=== PATIENT | female | born 1980 | race Caucasian/White ===

== ENCOUNTER → 2020-04-17 | Outpatient (CLI) | payer BC ==
--- NOTE | 2020-04-17 14:27 | Diagnostic Imaging Report ---
Examination: MRI BRAIN WO CONTRAST History: ^FAMILY HX OF STROKE Comparison studies: None Technique: Sagittal T2; axial DWI, FLAIR, GRE or SWI, T1, Coronal FLAIR. Intravenous contrast: None Findings: Scalp: No abnormal signal. No masses. Bone marrow: Normal in signal intensity. Brain volume: Adequate for age. No volume loss. Ventricles: Normal in size and configuration. No hydrocephalus. Extra-axial spaces: No abnormalities. Parenchyma: No masses, hemorrhage, or acute or chronic vascular insults. Suprasellar and sellar region: No abnormalities. Craniocervical junction: No abnormalities. The foramen magnum is patent. No Chiari malformations. Vessels: Normal flow-voids in the arteries and sinuses. Additional findings:None. IMPRESSION: No intracranial abnormalities. Signed by: Dr. Jessica Orantes M.D. on 04/17/2020 2:24 PM
--- NOTE | 2020-04-17 14:36 | Diagnostic Imaging Report ---
Examination: MRA HEAD WO CONTRAST History: ^FAMILY HX OF STROKE Comparison studies: None Technique: 3-D [id number] MR angiogram of the intracranial circulation was obtained. MIP images of the arteries were isolated into anterior and posterior intracranial circulations, 180 degree projections. Sagittal and coronal MPR images, and axial source images are available for evaluation. Findings: Internal carotid arteries: Patent. Anterior cerebral arteries: Patent A1 and A2. Middle cerebral arteries: Patent M1 and M2. Vertebrobasilar circulation: Patent. Posterior cerebral arteries: Patent P1 and P2. Anatomical variants: Anterior communicating arteries: Patent. Posterior communicating arteries: Bilaterally patent Vertebral arteries: Left dominant IMPRESSION: No intracranial arterial stenosis or occlusion pr vascular malformation. Signed by: Dr. Jessica Orantes M.D. on 04/17/2020 2:32 PM
== END ==
LOC: MRI 07:30
PROVIDERS: ATTEND Psychiatry & Neurology Clinical Neurophysiology
DX: Z82.3 Family history of stroke (principal); G43.911 Migraine, unspecified, intractable, with status migrainosus
CPT/HCPCS: 70544; 70551

== ENCOUNTER → 2020-06-12 | Outpatient (CLI) | payer OTHER ==
[2020-06-12 14:47] LABS: CHOL/HDL RATIO 5.1 (3.0-3.6)
[2020-06-12 15:08] LABS: FREE THYROXINE INDEX 2.6874 (1.4-3.8); THYROID STIMULATING HORMONE 0.561 uIU/mL (0.350-4.940)
== END ==
LOC: LAB 13:57
PROVIDERS: ATTEND Family Medicine
DX: F41.9 Anxiety disorder, unspecified (principal); F32.4 Major depressive disorder, single episode, in partial remission; G43.719 Chronic migraine without aura, intractable, without status migrainosus; B00.1 Herpesviral vesicular dermatitis; E03.9 Hypothyroidism, unspecified
CPT/HCPCS: 36415; 80061; 82607; 82652; 83036; 84436; 84443; 84479; 86039; 86376

== ENCOUNTER → 2020-06-25 | Outpatient (CLI) | payer OTHER ==
[~2020-06-25] MED LIST: COVID-19 VACC, MRNA(MODERNA)/PF 100 MCG/0.5 ML VIAL IM ONE
== END ==
LOC: VACCPMC 08:00
DX: Z23 Encounter for immunization (principal); Z20.822 Contact with and (suspected) exposure to COVID-19